=== PATIENT | female | born 1995 | race Caucasian/White ===

== ENCOUNTER 2022-11-08 12:47 | Outpatient (CLI) | payer OTHER | END 2022-11-08 13:25 | disposition home or self-care (01) | LOC: PRENATAL 12:47 | PROVIDERS: ATTEND Obstetrics & Gynecology Maternal & Fetal Medicine | DX: O35.9XX0 Maternal care for (suspected) fetal abnormality and damage, unspecified, not applicable or unspecified (principal); O99.210 Obesity complicating pregnancy, unspecified trimester; O43.90 Unspecified placental disorder, unspecified trimester; Z3A.23 23 weeks gestation of pregnancy ==

== ENCOUNTER 2023-01-10 11:29 | Outpatient (CLI) | payer OTHER | END 2023-01-10 13:00 | disposition home or self-care (01) | LOC: PRENATAL 11:29 | PROVIDERS: ATTEND Obstetrics & Gynecology Maternal & Fetal Medicine | DX: O26.849 Uterine size-date discrepancy, unspecified trimester (principal); O36.8199 Decreased fetal movements, unspecified trimester, other fetus; O35.9XX0 Maternal care for (suspected) fetal abnormality and damage, unspecified, not applicable or unspecified; O99.210 Obesity complicating pregnancy, unspecified trimester; O43.90 Unspecified placental disorder, unspecified trimester; Z3A.32 32 weeks gestation of pregnancy ==

== ENCOUNTER 2023-03-01 05:53 | Inpatient (IN) | payer OTHER ==
[~2023-03-01] VITALS: Ht 167.6 cm; Wt 105.2 kg
[2023-03-01] MEDS ORDERED: PRENATAL CAPLE1 EAC1 (06:23)
[2023-03-01] MEDS ORDERED: FOLIC ACID0.8 M1 (06:23)
== END 2023-03-03 13:32 | disposition home or self-care (01) | DRG 788 ==
LOC: LDR 05:53 → OB/GYN 13:48 → O/R 18:01 → OB/GYN 19:41
PROVIDERS: ADMIT Obstetrics & Gynecology; ATTEND Obstetrics & Gynecology
PROC: 4A1HXCZ Monitoring of Products of Conception, Cardiac Rate, External Approach (ICD-10-PCS; 2023-03-01)
PROC: 10D00Z1 Extraction of Products of Conception, Low, Open Approach (ICD-10-PCS; principal; 2023-03-01 17:00)
DX: O33.8 Maternal care for disproportion of other origin (principal); Z3A.40 40 weeks gestation of pregnancy; Z37.0 Single live birth; Z20.822 Contact with and (suspected) exposure to COVID-19

== ENCOUNTER 2024-01-12 12:08 | Outpatient (CLI) | payer OTHER ==
[~2024-01-12 12:08] MED LIST: FOLIC ACID0.8 M1; PRENATAL CAPLE1 EAC1
== END 2024-01-12 12:11 | disposition home or self-care (01) ==
LOC: PRENATAL 12:08
PROVIDERS: ATTEND Obstetrics & Gynecology Maternal & Fetal Medicine
DX: O36.80X0 Pregnancy with inconclusive fetal viability, not applicable or unspecified (principal); Z36.82 Encounter for antenatal screening for nuchal translucency; Z36.9 Encounter for antenatal screening, unspecified; O34.219 Maternal care for unspecified type scar from previous cesarean delivery; O10.019 Pre-existing essential hypertension complicating pregnancy, unspecified trimester; Z3A.14 14 weeks gestation of pregnancy

== ENCOUNTER → 2024-01-15 | Emergency (ER) | payer OTHER ==
[~2024-01-15] VITALS: Ht 167.6 cm; Wt 108.0 kg
[~2024-01-15] MED LIST changes: +ACETAMINOPHEN 500 MG GEL..CAP PO ONE; +MACROBID 100 M100 MG PO; +PEPCID AC20 MG PO
[2024-01-15 16:57] LABS: HEMATOCRIT 33.5 % (36.0-45.00); HEMOGLOBIN 11.5 g/dL (12.0-15.00); MEAN CELL VOLUME 82.4 fL (80.00-100.00); MEAN CORPUSCULAR HEMOGLOBIN 28.3 pg (27.00-32.0); MEAN CORPUSCULAR HGB CONC 34.3 g/dl (32.0-36.0); PLATELET COUNT 270 K/uL (150-450); RED BLOOD COUNT 4.07 M/uL (4.00-6.00); RED CELL DISTRIBUTION WIDTH 14.6 % (11.5-14.5)
[2024-01-15 17:13] LABS: CALCIUM 9.6 mg/dL (8.5-10.1); CREATININE SERUM 0.63 mg/dL (0.55-1.02); GFR 111.72; INR 0.98; PARTIAL THROMBOPLASTIN TIME 26.7 SECONDS (22.0-34.0); POTASSIUM 3.45 mEq/L (3.5-5.1); PROTHROMBIN TIME 10.3 SECONDS (9.0-11.5)
[2024-01-15 18:38] LABS: PH,URINE 6.5 (5.0-8.0); URINE APPEARANCE Clear; URINE BILIRRUBIN Negative (NEGATIVE); URINE BLOOD Moderate; URINE COLOR Yellow; URINE GLUCOSE Negative (NEGATIVE); URINE LEUKOCYTE Small; URINE NITRATE Negative; URINE PROTEIN Negative (NEGATIVE); URINE UROBILINOGEN 0.2 E.U./dl
[2024-01-15 18:42] LABS: URINE BACTERIA 154.8 uL (0.0-1933); URINE EPITHELIAL CELLS 15.4 uL (0.0-38.8); URINE WBC 30.2 uL (0.0-23.2)
[2024-01-15 18:47] LABS: URINE RBC 0.4 uL (0.0-20.8)
== END | disposition home or self-care (01) ==
LOC: ER 13:26
PROVIDERS: Nurse Practitioner Family
DX: O20.9 Hemorrhage in early pregnancy, unspecified (principal); O44.02 Complete placenta previa NOS or without hemorrhage, second trimester; Z3A.15 15 weeks gestation of pregnancy

== ENCOUNTER 2024-04-18 09:57 | Outpatient (CLI) | payer OTHER ==
[~2024-04-18 09:57] MED LIST changes: -ACETAMINOPHEN 500 MG GEL..CAP PO ONE
== END 2024-04-18 09:59 | disposition home or self-care (01) ==
LOC: PRENATAL 09:57
PROVIDERS: ATTEND Obstetrics & Gynecology Maternal & Fetal Medicine
DX: O26.843 Uterine size-date discrepancy, third trimester (principal); O34.219 Maternal care for unspecified type scar from previous cesarean delivery; O99.210 Obesity complicating pregnancy, unspecified trimester; Z3A.28 28 weeks gestation of pregnancy

== ENCOUNTER 2024-06-15 18:02 | Outpatient (CLI) | payer OTHER ==
[~2024-06-15] VITALS: Ht 167.6 cm; Wt 112.0 kg
[2024-06-15 17:11] VITALS: BP 119/77
[2024-06-15] MEDS ORDERED: RINGERS SOLUTION,LACTATED 1,000 ML IV SCH (18:15)
[2024-06-15 18:35] LABS: HEMATOCRIT 32.8 % (36.0-45.00); HEMOGLOBIN 11.3 g/dL (12.0-15.00); MEAN CELL VOLUME 81.1 fL (80.00-100.00); MEAN CORPUSCULAR HEMOGLOBIN 27.9 pg (27.00-32.0); MEAN CORPUSCULAR HGB CONC 34.4 g/dl (32.0-36.0); PLATELET COUNT 234 K/uL (150-450); RED BLOOD COUNT 4.05 M/uL (4.00-6.00); RED CELL DISTRIBUTION WIDTH 15.7 % (11.5-14.5)
[2024-06-15 18:36] LABS: URINE APPEARANCE Cloudy; URINE BILIRRUBIN Negative (NEGATIVE); URINE BLOOD Negative; URINE COLOR Yellow; URINE GLUCOSE Negative (NEGATIVE); URINE KETONE Trace (NEGATIVE); URINE LEUKOCYTE Small; URINE NITRATE Negative; URINE PROTEIN Negative (NEGATIVE)
[2024-06-15 18:37] LABS: URINE BACTERIA 623.6 uL (0.0-1933); URINE EPITHELIAL CELLS 51.1 uL (0.0-38.8); URINE RBC 10.3 uL (0.0-20.8); URINE WBC 62.6 uL (0.0-23.2)
[2024-06-15 18:48] LABS: URINE CRYSTALS MODERATE /HPF; URINE MUCUS MODERATE
[2024-06-15 18:54] LABS: ALBUMIN 2.7 gm/dL (3.4-5.0); BILIRUBIN TOTAL 0.16 mg/dL (0.3-1.2); CALCIUM 8.9 mg/dL (8.5-10.1); CREATININE SERUM 0.74 mg/dL (0.55-1.02); GFR 92.15; GLOBULINA 3.8 G/DL (2.4-3.5); POTASSIUM 3.93 mEq/L (3.5-5.1); TOTAL PROTEIN 6.5 gm/dL (6.4-8.2)
[2024-06-15 18:56] LABS: INR 0.96; PARTIAL THROMBOPLASTIN TIME 26.5 SECONDS (22.0-34.0); PROTHROMBIN TIME 10.5 SECONDS (9.0-11.5)
[2024-06-15] MEDS ORDERED: TERBUTALINE SULFATE 1 MG/ML AMPUL SUBCUTANEO ONE (20:00)
[2024-06-15 20:07] VITALS: BP 100/63
[2024-06-15 23:14] VITALS: BP 96/57
[2024-06-16 03:13] VITALS: BP 99/63
[2024-06-16 07:26] VITALS: BP 111/69
== END 2024-06-16 09:00 | disposition home or self-care (01) ==
LOC: OBS/DEL 18:02
PROVIDERS: Specialist; ATTEND Obstetrics & Gynecology
DX: O47.03 False labor before 37 completed weeks of gestation, third trimester (principal); Z3A.36 36 weeks gestation of pregnancy

== ENCOUNTER 2024-06-26 11:07 | Inpatient (IN) | payer OTHER ==
[~2024-06-26] VITALS: Ht 167.6 cm; Wt 3.2 kg
[2024-06-26 12:44] LABS: HEMATOCRIT 35.7 % (36.0-45.00); HEMOGLOBIN 11.9 g/dL (12.0-15.00); MEAN CELL VOLUME 81.4 fL (80.00-100.00); MEAN CORPUSCULAR HEMOGLOBIN 27.3 pg (27.00-32.0); MEAN CORPUSCULAR HGB CONC 33.5 g/dl (32.0-36.0); PLATELET COUNT 266 K/uL (150-450); RED BLOOD COUNT 4.38 M/uL (4.00-6.00); RED CELL DISTRIBUTION WIDTH 15.6 % (11.5-14.5)
[2024-06-26 12:55] LABS: URINE APPEARANCE Clear; URINE BILIRRUBIN Negative (NEGATIVE); URINE BLOOD Negative; URINE COLOR Yellow; URINE GLUCOSE Negative (NEGATIVE); URINE KETONE Trace (NEGATIVE); URINE LEUKOCYTE Negative; URINE NITRATE Negative; URINE PROTEIN Negative (NEGATIVE)
[2024-06-26 12:56] LABS: URINE BACTERIA 502.7 uL (0.0-1933); URINE EPITHELIAL CELLS 32.1 uL (0.0-38.8); URINE RBC 8.5 uL (0.0-20.8); URINE WBC 8.4 uL (0.0-23.2)
[2024-06-26 13:05] LABS: INR 0.98; PARTIAL THROMBOPLASTIN TIME 27.9 SECONDS (22.0-34.0); PROTHROMBIN TIME 10.7 SECONDS (9.0-11.5)
[2024-06-26 13:53] LABS: URINE CRYSTALS MANY /HPF
[2024-07-03 08:15] VITALS: BP 119/80
[2024-07-03] MEDS ORDERED: CEFAZOLIN SODIUM 1,000 MG VIAL IV ONE (14:15)
[2024-07-03] MEDS ORDERED: ERYTHROMYCIN BASE OPHT 1GM EACH TUBE OP ONE (14:15)
[2024-07-03] MEDS ORDERED: OXYTOCIN 10 UNITS/ML VIAL IV ONE (14:15)
[2024-07-03] MEDS ORDERED: PROMETHAZINE HCL 50 MG/ML AMPUL IM PRN (17:15)
[2024-07-03] MEDS ORDERED: MEPERIDINE HCL/PF 50 MG/ML VIAL IM PRN (17:15)
[2024-07-03 19:13] VITALS: BP 110/68
[2024-07-04 00:37] VITALS: BP 103/64
[2024-07-04 05:26] VITALS: BP 117/64
[2024-07-04 07:02] LABS: HEMATOCRIT 35.4 % (36.0-45.00); HEMOGLOBIN 11.9 g/dL (12.0-15.00); MEAN CELL VOLUME 83.1 fL (80.00-100.00); MEAN CORPUSCULAR HGB CONC 33.7 g/dl (32.0-36.0); PLATELET COUNT 189 K/uL (150-450); RED BLOOD COUNT 4.26 M/uL (4.00-6.00); RED CELL DISTRIBUTION WIDTH 15.5 % (11.5-14.5)
[2024-07-04] MEDS ORDERED: OxyCODONE HCL/APAP UD (PERCOCET) PO PRN (08:00)
[2024-07-04 08:35] VITALS: BP 111/72
[2024-07-04] MEDS ORDERED: SIMETHICONE 125 MG CAPSULE PO SCH (09:00)
[2024-07-04] MEDS ORDERED: PNV,CALCIUM 72/IRON/FOLIC ACID 1 TAB TABLET PO SCH (09:00)
[2024-07-04] MEDS ORDERED: DOCUSATE SODIUM 100MG CAP PO SCH (09:00)
[2024-07-04 13:42] VITALS: BP 101/67
[2024-07-04 16:00] VITALS: BP 108/70
[2024-07-05 00:25] VITALS: BP 112/74
[2024-07-05 08:00] VITALS: BP 121/78
[2024-07-05 09:07] LABS: hav igm Negative (Negative); hcv Non Reactive (Non Reactive); hep b c Negative (Negative); hep b s ag Negative (Negative)
[2024-07-05 18:00] VITALS: BP 114/70
[2024-07-06 01:07] VITALS: BP 118/77
[2024-07-06 07:50] VITALS: BP 90/60
== END 2024-07-06 13:16 | disposition home or self-care (01) | DRG 785 ==
LOC: O/R 07-03 08:42 → OB/GYN 07-03 15:48
PROVIDERS: ADMIT Obstetrics & Gynecology; ATTEND Obstetrics & Gynecology
PROC: 0UB70ZZ Excision of Bilateral Fallopian Tubes, Open Approach (ICD-10-PCS; 2024-07-03)
PROC: 4A1HXCZ Monitoring of Products of Conception, Cardiac Rate, External Approach (ICD-10-PCS; 2024-07-03)
PROC: 10D00Z1 Extraction of Products of Conception, Low, Open Approach (ICD-10-PCS; principal; 2024-07-03 11:45)
DX: O34.211 Maternal care for low transverse scar from previous cesarean delivery (principal); Z3A.39 39 weeks gestation of pregnancy; Z37.0 Single live birth; Z20.822 Contact with and (suspected) exposure to COVID-19; Z30.2 Encounter for sterilization